=== PATIENT | female | born 1970 | race Caucasian/White ===

== ENCOUNTER 2020-01-09 08:53 | Outpatient (CLI) | payer SELFPAY ==
--- NOTE | 2020-01-09 09:12 | CT_ITS ---
WS: [id number] CT RIGHT ANKLE, NONCONTRAST. HISTORY: SINUS TARSI SYNDROME-RIGHT Technique: CT evaluation of the ankle is performed in neutral and supination positions. 3-D volume re ndering reformats are also submitted. All CT scans at [facility] use at least one of these dose optimization techniques: automated exposure control; mA and/or kV adjustment per patient size ( includes targeted exams where dose is matched to clinical indication); or iterative reconstruction. DLP: 944.66 mGycm COMPARISON: None available. No fractures or dislocations. Normal appearance of the talus and calcaneus. There is a very small sydni caneal spur. Joint space between the anterior talar process and the navicular is 3 mm. Joint space be tween the talus and calcaneus at the middle talar facet is 2.8 mm. There is no bony coalition between the tarsal bones or the talus. No soft tissue abnormalities. During the neutral and supination images there does appear to be a normal rotation of the talus with respect to the navicular and calcaneus. CT/CT ankle RT wo con* [id number] IMPRESSION: 1. Moderate narrowing between the talus and navicular with joint space 3 mm. 2. Mild narrowing with no coalition involving the joint space between the calc aneus and the talus at the middle talar facet. Joint space measures 2.8 mm.
== END 2020-01-09 08:54 | disposition home or self-care (01) ==
PROVIDERS: PCP Physician Assistant Medical; Visit Provider Podiatrist Primary Podiatric Medicine
DX: M25.571 Pain in right ankle and joints of right foot (principal)
CPT/HCPCS: 73700

== ENCOUNTER → 2022-03-24 13:26 | Outpatient (BNVA) | payer SELFPAY | PROVIDERS: PCP Physician Assistant Medical; Visit Provider Podiatrist Foot & Ankle Surgery | DX: M77.41 Metatarsalgia, right foot (principal); M76.72 Peroneal tendinitis, left leg; M77.42 Metatarsalgia, left foot; M76.71 Peroneal tendinitis, right leg | CPT/HCPCS: 73630 ==